=== PATIENT | male | born 1975 | race Caucasian/White ===

== ENCOUNTER 2016-11-29 13:35 | Emergency (ER) | payer BC ==
[2016-11-29 14:09] VITALS: BP 117/77
[2016-11-29] MEDS ORDERED: HYDROmorphone 0.5 MG/0.5 ML Syringe IM ONE (14:27)
[2016-11-29] MEDS ORDERED: Ketorolac 60 MG/2 ML SDV IM ONE (14:27)
[2016-11-29] MEDS ORDERED: Diazepam 5 MG Tab PO ONE (14:28)
--- NOTE | 2016-11-29 14:37 | EDM.PDOC ---
ED HPI LOWER BACK PAIN/INJURY - General Chief Complaint: Back Pain or Injury Stated Complaint: BACK INJURY Time Seen by Provider: 11/29/16 14:16 Source of Information: Reports: Patient, Significant Other History Limitations: Reports: No limitations - History of Present Illness INITIAL COMMENTS - FREE TEXT/NARRATIVE: Patient presents for evaluation treatment of a low back injury. Patient reports around 9:30 this morning he was attempting to push a car in the mud. States that he did he almost did the splits and then he developed severe pain in her back. States that the right side is worse than the left. States that he developed some tingling into the right hip. He denies any history of back problems. States he tried to get in with a chiropractor but has been unable to get into a chiropractor today. He denies any nausea, vomiting, urinary incontinence, stool incontinence or urinary retention. Location: Reports: paraspinal, radiating pain - Related Data Allergies/ADRs: Allergies Allergy/AdvReac Type Severity Reaction Status Date / Time No Known Allergies Allergy Verified 08/29/14 18:20 Home Meds: Home Meds Methylphenidate [Concerta] 54 mg PO DAILY 01/04/14 [History] Acetaminophen/oxyCODONE [Percocet 325-5 MG] 1 tab PO Q6H PRN #15 tablet [Rx] Orphenadrine [Norflex] 100 mg PO BID PRN #14 tab.er 11/29/16 [Rx] Past Medical History - Past Surgical History HEENT Surgical History: Reports: Other (see below) Other HEENT Surgeries/Procedures: cleft palate surgery and deviated septum Social & Family History - Tobacco Use Smoking Status *Q: Never Smoker Years of Tobacco use: 10 Used Tobacco, but Quit: Yes Month Tobacco Last Used: 04/2014 Second Hand Smoke Exposure: No - Caffeine Use Caffeine Use: Reports: Soda - Alcohol Use Days Per Week of Alcohol Use: 0 - Recreational Drug Use Recreational Drug Use: No ED ROS GENERAL - Review of Systems Review Of Systems: See Below Constitutional: Denies: fever, chills GI/Abdominal: Denies: Nausea, Stool incontinence, Vomiting : Denies: dysuria, incontinence, urinary retention Musculoskeletal: Reports: back pain (low; right > left) Neurological: Reports: Tingling. Denies: Numbness ED EXAM,LOWER BACK PAIN/INJURY - Physical Exam Exam: See Below Exam Limited By: No limitations General Appearance: alert, WD/WN, mild distress Respiratory/Chest: no respiratory distress, lungs clear, normal breath sounds Cardiovascular: normal peripheral pulses, regular rate, rhythm, no murmur Back Exam: normal inspection, decreased range of motion (due to pain; ROM testing deferred due to pain), paraspinal tenderness (right around L3-L5). No: vertebral tenderness Neurological: alert, normal mood/affect, normal dorsiflexion, normal plantar flexion, straight leg raise (L) (causea pain to the right), straight leg raise ( R), difficulty walking Psychiatric: normal affect, normal mood Skin Exam: Warm, Dry, Normal color Course - Vital Signs Last Recorded V/S: Last Vital Signs Temp 36.8 C 11/29/16 14:06 Pulse 72 11/29/16 14:06 Resp 20 11/29/16 14:06 BP 117/77 11/29/16 14:06 Pulse Ox 98 11/29/16 14:06 - Orders/Labs/Meds Meds: Medications Discontinued Medications Generic Name Dose Route Start Last Admin Trade Name [place] PRN Reason Stop Dose Admin Diazepam 2 mg 11/29/16 14:28 11/29/16 14:51 Valium. PO 11/29/16 14:29 2 mg ONETIME ONE Administration Hydromorphone HCl 0.5 mg 11/29/16 14:27 11/29/16 14:54 Dilaudid IM 11/29/16 14:28 0.5 mg ONETIME ONE Administration Ketorolac Tromethamine 60 mg 11/29/16 14:27 11/29/16 14:53 Toradol IM 11/29/16 14:28 60 mg ONETIME ONE Administration - Re-Assessments/Exams Free Text/Narrative Re-Assessment/Exam: 11/29/16 15:21 Patient feeling sleepy but improved. Discussed xrays with the patient. I do not feel this will provide any additional information. I believe the pain is muscular. I did warm him he may have herniated a disk. Will defer xrays at this time. Will discharge home at this time. Departure - Departure Time of Disposition: 15:21 Disposition: Home, Self-Care 01 Condition: fair Clinical Impression: Muscle spasm, Low back pain Prescriptions: Acetaminophen/oxyCODONE [Percocet 325-5 MG] 1 tab PO Q6H PRN #15 tablet PRN Reason: Pain Orphenadrine [Norflex] 100 mg PO BID PRN #14 tab.er PRN Reason: Muscle Spasm Instructions: Muscle Cramps and Spasms, [id number], Back Pain, Adult, Easy-to -Read Referrals: Renee Serrano, [employer] [Primary Care Provider] - Forms: ED Department Discharge, Return to Work/School Form Additional Instructions: He was given medication in the ER that can affect his ability to drive and operating machinery. No driving or operating machinery within 12 hours of taking prescription narcotic pain medication. Take Aleve [id number] twice a day. He may take the Percocet 1/2 to one tab every 4-6 hours as needed for severe pain. No driving or operating machinery within 12 hours of taking the Percocet. Percocet can be habit-forming, I recommended you take as few of these as needed to control your pain. Expect to be sore for the next week. Should your symptoms continue beyond one week, I recommend he see a primary care provider. He may require an MRI to evaluate for herniated disc. Utilize ice or moist heat to sore areas. Rest but do not be completely bedridden. gentle stretching and range of motion as tolerated. note written for work. Please return to the ER should your symptoms change or worsen.
== END 2016-11-29 16:05 | disposition home or self-care (01) ==
LOC: JD.ED 13:35
DX: M62.830 Muscle spasm of back (principal); Z87.891 Personal history of nicotine dependence; Z79.899 Other long term (current) drug therapy; Z98.890 Other specified postprocedural states
CPT/HCPCS: 96372; 99283; A9270; J1170; J1885; 99284

== ENCOUNTER 2017-05-10 17:13 | Emergency (ER) | payer BC ==
[2017-05-10 17:36] VITALS: BP 140/88
[2017-05-10] MEDS ORDERED: Diphtheria,Pertussis(Acell),Tetanus Vaccine 0.5 ML SDV IM ONE (17:50)
--- NOTE | 2017-05-10 19:14 | EDM.PDOC ---
ED HPI GENERAL MEDICAL PROBLEM - General Chief Complaint: Laceration Stated Complaint: HEAD LAC Time Seen by Provider: 05/10/17 18:58 Source of Information: Reports: Patient History Limitations: Reports: No Limitations - History of Present Illness INITIAL COMMENTS - FREE TEXT/NARRATIVE: Patient is a 42 year old male who presents to the E.D. complaining of laceration to the posterior aspect of his head. This occurred while working on a car. States while lifting a engine with a cast bead picker. The Engine lift fell over hitting the patient on the head. Their was no loc. Patient denies neck/ back pain, n/t to extremities, n/v, headache, vision changes or any additional complaints. Head Pain Score (Numeric/FACES): 3 - Related Data Allergies Allergy/AdvReac Type Severity Reaction Status Date / Time No Known Allergies Allergy Verified 05/10/17 17:30 Home Meds: Home Meds Methylphenidate [Concerta] 54 mg PO DAILY 01/04/14 [History] Past Medical History - Past Surgical History HEENT Surgical History: Reports: Other (See Below) Social & Family History - Family History Family Medical History: Noncontributory - Tobacco Use Smoking Status *Q: Former Smoker Years of Tobacco use: 10 Used Tobacco, but Quit: Yes Month Tobacco Last Used: 2014 Second Hand Smoke Exposure: No - Caffeine Use Caffeine Use: Reports: Soda - Alcohol Use Days Per Week of Alcohol Use: 0 - Recreational Drug Use Recreational Drug Use: No ED ROS GENERAL - Review of Systems Review Of Systems: ROS reveals no pertinent complaints other than HPI. ED EXAM, SKIN/RASH Exam: See Below Exam Limited By: No Limitations General Appearance: Alert, WD/WN, No Apparent Distress Eye Exam: Bilateral Eye: EOMI, PERRL Ears: Normal External Exam, Hearing Grossly Normal Nose: Normal Inspection Throat/Mouth: Normal Voice, No Airway Compromise Neck: Normal Inspection, Supple, Non-Tender, Full Range of Motion Respiratory/Chest: No Respiratory Distress, No Accessory Muscle Use Cardiovascular: Normal Peripheral Pulses, Regular Rate, Rhythm Peripheral Pulses: 2+: Radial (R) Neurological: Alert, Oriented, CN II-XII Intact, Normal Cognition, No Motor/ Sensory Deficits Psychiatric: Normal Affect, Normal Mood Skin: Warm, Dry, Normal Color ED SKIN PROCEDURES - Laceration/Wound Repair Head Lac/Wound length In cm: 3 Appearance: Subcutaneous, Clean Distal NVT: Neuro & Vascular Intact Exploration/Debridement/Repair: Wound Explored, Explored to Base, No Foreign Material Found Closed with: Dermabond Drain Placement: No Sterile Dressing Applied: None Tetanus Status Addressed: Yes Complications: No Course - Vital Signs Last Recorded V/S: Last Vital Signs Temp 99.9 F 05/10/17 17:31 Pulse 95 05/10/17 17:31 Resp 18 05/10/17 17:31 BP 140/88 05/10/17 17:31 Pulse Ox 100 05/10/17 17:31 - Orders/Labs/Meds Orders: Active Orders 24 hr Category Date Time Status Vaccines to be Administered [RC] PER UNIT ROUTINE Care 05/10/17 17:51 Active Meds: Medications Discontinued Medications Generic Name Dose Route Start Last Admin Trade Name Freq PRN Reason Stop Dose Admin Diphtheria/Tetanus/Acell Pertussis 0.5 ml 05/10/17 17:50 05/10/17 18:22 Adacel IM 05/10/17 17:51 0.5 ml .ONCE ONE Administration - Re-Assessments/Exams Free Text/Narrative Re-Assessment/Exam: Patient has a 3 cm laceration to the posterior aspect of his head. Laceration is superficial, clean, with no bleeding. No bony abnormalities with minimal swelling. Laceration closed with Dermabond with no complications. Tetanus status is up-to- date. Will discharge patient home with instructions as documented. Departure - Departure Time of Disposition: 19:16 Disposition: Home, Self-Care 01 Condition: Good Clinical Impression: Laceration of head Qualifiers: Encounter type: initial encounter Location of open wound of head: scalp Foreign body presence: without foreign body Qualified Code(s): S01.01XA - Laceration without foreign body of scalp, initial encounter - Discharge Information Instructions: Laceration Care, Adult, [id number], Stitches, [place], or Adhesive Wound Closure, [id number] Referrals: PCP,None [Primary Care Provider] - Forms: ED Department Discharge Additional Instructions: Dermabond will fall off on its own accord in approximate 5-7 days. Continue to shower daily being gentle with this area when cleansing. Do not place any triple antibiotic ointment/sunscreen on the affected area. Keep the area clean and dry. Return back to ED if he experience increased redness, swelling, or purulent drainage. - My Orders Last 24 Hours: My Active Orders 05/10/17 17:51 Vaccines to be Administered [RC] PER UNIT ROUTINE - Assessment/Plan Last 24 Hours: My Active Orders 05/10/17 17:51 Vaccines to be Administered [RC] PER UNIT ROUTINE
== END 2017-05-10 19:29 | disposition home or self-care (01) ==
LOC: JD.ED 17:13
DX: S01.01XA Laceration without foreign body of scalp, initial encounter (principal); Z79.899 Other long term (current) drug therapy; Z87.891 Personal history of nicotine dependence; W22.8XXA Striking against or struck by other objects, initial encounter; Z23 Encounter for immunization
CPT/HCPCS: 12002; 90471; 90715; 99282; 99283-25